=== PATIENT | female | born 1945 ===

== ENCOUNTER 2018-06-02 08:45 | Outpatient (REF) | payer MEDICARE, BC, SELFPAY ==
[2018-06-02 11:54] LABS: HCT 44.3 % (36.0-46.0); HGB 14.7 g/dL (12.0-15.5); Mean Corp. HGB Concentration 33.2 g/dL (32.0-36.0); Mean Corpuscular Hemoglobin 31.5 pg (27.0-33.0); Mean Corpuscular Volume 95.1 fL (80-95); Mean Platelet Volume 10.8 fL (8.0-11.0); Platelet Count 202 x1000/uL (130-400); RBC 4.66 m/cumm (4.00-5.20); RBC Distribution Width 13.2 % (11.7-14.6); White Blood Cell Count 4.17 k/cumm (4.4-10.8)
[2018-06-02 12:06] LABS: ALT 29 U/L (12-78); AST 24 U/L (15-37); Albumin 3.7 g/dL (3.4-5.0); Alkaline Phosphatase 70 U/L (46-116); Anion Gap 8.1 mmol/L (3-11); BUN 17 mg/dL (7-18); Bilirubin, Total 0.5 mg/dL (0.2-1.0); CO2 26.9 mmol/L (21.0-32.0); CREATININE 0.75 mg/dL (0.55-1.02); Calcium 8.8 mg/dL (8.5-10.1); Chloride 108 mmol/L (98-107); Cholesterol 246 mg/dL (50-200); Glucose 90 mg/dL (70-100); HDL Cholesterol 77 mg/dL (40-60); LDL CHOLESTEROL 141 mg/dL (<100); Potassium 4.4 mmol/L (3.5-5.1); Sodium 143 mmol/L (136-145); Total Protein 6.2 g/dL (6.4-8.2); Triglyceride 131 mg/dL (30-150)
== END 2018-06-02 08:46 ==
LOC: NCHCN 08:45
PROVIDERS: PCP Family Medicine; Visit Provider Family Medicine
DX: E78.5 Hyperlipidemia, unspecified (principal); Z79.01 Long term (current) use of anticoagulants; I48.91 Unspecified atrial fibrillation
CPT/HCPCS: 80053; 80061; 83721; 85027

== ENCOUNTER 2018-09-23 00:19 | Outpatient (CLI) | payer MEDICARE, BC, SELFPAY ==
--- NOTE | 2018-09-23 14:31 | DI.MAMMO_ITS ---
SYMPTOMS/DIAGNOSIS: SCREENING, Z12.31, [facility], Z00.00 MAMMOGRAM: Mammograms were interpreted according to the usual protocol including computer analysis with CAD system, tomosynthesis and C view imaging. The breasts are heterogeneously dense. No dominant mass or clumped microcalcification is identified in either breast. Current examination is compared with the previous examination of May 2017 and there has been no gross interval change in appearance since that time. CONCLUSION: No specific evidence of malignancy at this time. Routine screening examinations are suggested at yearly intervals due to the family history of breast carcinoma. Category 1, breast density category C. MQSA ASSESSMENT OF FINDINGS: Negative. Category 1. Patient will receive a letter notifying them of these results. Bi-RADS category C. The breasts are heterogeneously dense, which may obscure small masses.
== END 2018-09-23 00:39 ==
PROVIDERS: PCP Family Medicine; Visit Provider Nurse Practitioner
DX: Z12.31 Encounter for screening mammogram for malignant neoplasm of breast (principal); Z80.3 Family history of malignant neoplasm of breast
CPT/HCPCS: 77063; 77067

== ENCOUNTER 2019-06-07 08:35 | Outpatient (REF) | payer MEDICARE, BC, SELFPAY ==
[2019-06-07 12:46] LABS: ALT 20 U/L (12-78); AST 27 U/L (15-37); Albumin 3.7 g/dL (3.4-5.0); Alkaline Phosphatase 79 U/L (46-116); Anion Gap 9.6 mmol/L (3-11); BUN 20 mg/dL (7-18); Bilirubin, Total 0.4 mg/dL (0.2-1.0); CO2 26.4 mmol/L (21.0-32.0); CREATININE 0.63 mg/dL (0.55-1.02); Calcium 8.8 mg/dL (8.5-10.1); Calculated LDL 127 mg/dL; Chloride 107 mmol/L (98-107); Cholesterol 232 mg/dL (50-200); Glucose 86 mg/dL (70-100); HDL Cholesterol 85 mg/dL (40-60); Potassium 4.4 mmol/L (3.5-5.1); Sodium 143 mmol/L (136-145); TSH 1.42 uIU/mL (0.36-3.74); Total Protein 6.3 g/dL (6.4-8.2); Triglyceride 104 mg/dL (30-150)
[2019-06-07 12:59] LABS: C-Reactive Protein < 0.05 mg/dL (0.0-0.3)
== END 2019-06-07 08:55 ==
LOC: NCHCN 08:35
PROVIDERS: PCP Family Medicine; Visit Provider Family Medicine
DX: E78.5 Hyperlipidemia, unspecified (principal)
CPT/HCPCS: 80053; 80061; 83721; 84443; 86140

== ENCOUNTER 2019-09-25 00:53 | Outpatient (CLI) | payer MEDICARE, BC, SELFPAY ==
--- NOTE | 2019-09-25 11:34 | DI.MAMMO_ITS ---
EXAM: MG MAMMO SCREENING CLINICAL HISTORY: SCREENING, Z12.31, [facility], Z00.00 TECHNIQUE: Bilateral full field digital CC and MLO mammographic images were obtained with 3D tomosyn thesis and utilizing computer aided detection (CAD). COMPARISON: Available for comparison. FINDINGS: Masses/Architectural Distortion: None seen. Microcalcifications: No suspicious pleomorphic-type are seen. Skin Thickening/Nipple Retraction: None. IMPRESSION: 1. No significant interval change with no specific features of malignancy noted. 2. Unless there is more urgent need, screening mammography is recommended, as per [employer] guidelines. ACR BI-RAD Category- 1 Negative Breast Density - Category C - Heterogeneously dense The mammogram demonstrates the patient's breast tissue is dense. Dense breast tissue is very common a nd is not abnormal but dense breast tissue can make it harder to find cancer on a mammogram. Also, de nse breast tissue may increase their breast cancer risk. This information about the result of the [facility] mogram report was provided to the patient to raise their awareness. Use this report when you speak wi th the patient about their risks for breast cancer, which includes their family history. At that time , you may recommend for more screening tests (Ultrasound or MRI) as they might be useful based on the ir risk. A negative radiographic report should not delay biopsy if a dominant or clinically suspicious mass is present. Up to ten percent of cancers are not identified on mammography. A negative report may reinforce clinical impression. Adenosis and dense breasts may obscure an underlying neoplasm. False positive reports average 6 to 10%. Patient will receive a letter notifying them of these results.
== END 2019-09-25 01:13 ==
PROVIDERS: PCP Family Medicine; Visit Provider Family Medicine
DX: Z12.31 Encounter for screening mammogram for malignant neoplasm of breast (principal)
CPT/HCPCS: 77063; 77067

== ENCOUNTER 2019-12-13 10:57 | Outpatient (REF) | payer MEDICARE, BC, SELFPAY ==
[2019-12-13 11:26] LABS: HCT 41.3 % (36.0-46.0); HGB 13.9 g/dL (12.0-15.5); Mean Corp. HGB Concentration 33.7 g/dL (32.0-36.0); Mean Corpuscular Hemoglobin 31.9 pg (27.0-33.0); Mean Corpuscular Volume 94.7 fL (80-95); Mean Platelet Volume 10.5 fL (8.0-11.0); Platelet Count 205 x1000/uL (130-400); RBC 4.36 m/cumm (4.00-5.20); RBC Distribution Width 12.9 % (11.7-14.6); White Blood Cell Count 5.13 k/cumm (4.4-10.8)
[2019-12-13 12:21] LABS: ESR 5 mm/hr (0-30)
== END 2019-12-13 11:17 ==
LOC: NCHCN 10:57
PROVIDERS: PCP Family Medicine; Visit Provider Family Medicine
DX: R53.83 Other fatigue (principal); I48.91 Unspecified atrial fibrillation
CPT/HCPCS: 85027; 85652

== ENCOUNTER 2020-01-04 01:02 | Outpatient (CLI) | payer MEDICARE, BC, SELFPAY ==
--- NOTE | 2020-01-04 10:30 | DI.US_ITS ---
APPROVED REPORT EXAM: Comprehensive 2D, Doppler, and color-flow Echocardiogram Patient Location: Out-Patient Commercial Decorator: Domonique Simental RDCS (AE) Indications: Atrial Fibrillation Conclusion Left Ventricle : The left ventricle is normal size. Left ventricular systolic function is normal. Th ere is normal left ventricular wall thickness. There is normal LV segmental wall motion. Diastolic f unction is indeterminate. LVEF is 60-64%. Right Ventricle : The right ventricle is normal size. Atria : The left atrium size is normal. The right atrium size is normal. Aortic Valve : The aortic valve is normal in structure. Aortic valve is trileaflet. No aortic regurgi tation is present. There is no aortic valvular stenosis. Mitral Valve : There is mitral annular calcification. Mild mitral regurgitation. No evidence of jai l valve stenosis. Tricuspid Valve : The tricuspid valve is normal in structure. Mild tricuspid regurgitation. There is no tricuspid valve stenosis. Great Vessels : The aortic root is normal in size. The ascending aorta size is dilated. IVC is jakub l in size and collapses >50% with inspiration. There is no prior echocardiogram available for comparison. Wall motion Left Ventricle The left ventricle is normal size. Left ventricular systolic function is normal. There is normal left ventricular wall thickness. There is normal LV segmental wall motion. Diastolic function is indeterm inate. LVEF is 60-64%. Right Ventricle The right ventricle is normal size. The right ventricular systolic function is normal. Atria The left atrium size is normal. The right atrium size is normal. Aortic Valve The aortic valve is normal in structure. Aortic valve is trileaflet. There is no aortic valvular sten osis. No aortic regurgitation is present. Mitral Valve There is mitral annular calcification. No evidence of mitral valve stenosis. Mild mitral regurgitatio n. Tricuspid Valve The tricuspid valve is normal in structure. There is no tricuspid valve stenosis. Mild tricuspid regu rgitation. Pulmonic Valve The pulmonary valve is normal in structure. There is no pulmonic valvular stenosis. There is no pulmo hector valvular regurgitation. Great Vessels The aortic root is normal in size. The ascending aorta size is dilated. IVC is normal in size and col lapses >50% with inspiration. Pericardium There is no pericardial effusion. 2D Dimensions IVSD d PLAX 0.83 cm F: 0.6-1.0 LV Vol A2C d MOD 89.3 mL LVPW d PLAX 0.82 cm F: 0.6 - 1.0 LV Vol A4C d MOD 72.3 mL LVID d PLAX 4.34 cm F: 3.8 - 5.2 LA vol/ BSA A2C s A-L 39.8 mL/m2 LVDs 2.55 cm F: 2.2 - 3.5 LA vol/ BSA A4C s A-L 39.1 mL/m2 Ao Root d 3.14 cm F: 2.7 - 3.3 LA Vol/ BSA Biplane s A-L 39.5 mL/m2 RA Area A4C 15.50 cm2 LA Area A4C s MOD 20.14 cm2 RA Vol/ BSA A4C s A-L 26.6 mL/m2 LA Area A2C s MOD 20.27 cm2 Ao Asc Diam d 3.59 cm F: 2.3 - 3.1 LV EF A4C MOD 55.2 % LV EF Teichholz 72.3 % LV EF A2C MOD 64.6 % LVEF (Barnhart's) 60.24 % F: 54 - 74 LV EF Biplane MOD 60.2 % LV Volume 65.22 mL F: 46 - 106 LV Volume Index 40.25 mL/m2 F: 29 - 61 LV Vol Biplane MOD 80.8 mL FS 41.15 % LV Diastology MV E' medial 0.093 (>0.07 m/s) E/A Ratio 1.1 LV E/e MED 7.20 (<14) MV E Vmax 0.67 (0.4-1.3 m/s) MV E' lateral 0.093 (>0.1 m/s) MV A Vmax 0.60 (0.4-1.3 m/s) LV E/e LAT 7.20 (<14) MV E/A Ratio 1.08 MV E/E' medial 7.22 MV E/E' lateral 7.22 Aortic Valve LVOT Area 2.77 cm2 AoV Area Vmax 2.27 cm2 LVOT Vmax 0.95 m/s AoV Area/ BSA (Vmax) 1.40 cm2/m2 LVOT Mean Grady. 0.61 m/s MILAGRO Mean Grady. 2.28 cm2 LVOT Peak Grad 3.6 mmHg MILAGRO Mean Grady. Index 1.40 cm2/m2 LVOT Mean Grad 1.8 mmHg LVOT VTI 0.232 m LVOT Diam s 1.85 cm (M/F) 1.5-2.5 AoV Vmax 1.15 (0.5-1.3 m/s) Velocity Ratio 0.82 AoV Mean Grady. 0.74 m/s AoV Peak Grad 5.3 mmHg LVOT SV 64.17 mL AoV Mean Grad 2.6 (<5 mmHg) AoV VTI 0.266 (0.18-0.25 m) AoV Area VTI 2.41 (2.5-4.5 cm2) AoV Area/ BSA (VTI) 1.48 cm/m2 Mitral Valve MV DT 195 (160-240 msec) MV PHT 56 msec MV Area PHT 3.90 cm2 Pulmonary Valve PV Vmax 0.86 (0.5-1.5 m/s) RVOT Peak Gr. 2.06 mmHg PV Peak Grad 3.0 mmHg RVOT Mean Gr. 1.05 mmHg PV Mean Grad 1.7 mmHg RVOT VTI 0.195 m PV VTI 0.220 m RVOT Vmax 0.72 m/s Tricuspid Valve TR Peak Grad 20.5 mmHg TR Vmax 2.27 m/s RA Pressure 3.00 mmHg RVSP (TR) 23.6 mmHg
== END 2020-01-04 01:22 ==
PROVIDERS: PCP Family Medicine; Visit Provider Family Medicine
DX: I48.91 Unspecified atrial fibrillation (principal); I34.0 Nonrheumatic mitral (valve) insufficiency; R53.83 Other fatigue
CPT/HCPCS: 93306

== ENCOUNTER 2020-09-26 01:18 | Outpatient (CLI) | payer MEDICARE, BC, SELFPAY ==
--- NOTE | 2020-09-26 10:15 | DI.MAMMO_ITS ---
EXAM: MG MAMMO SCREENING CLINICAL HISTORY: SCREENING,Z12.31. TECHNIQUE: Bilateral full field digital CC and MLO mammographic images were obtained with 3D tomosyn thesis and utilizing computer aided detection (CAD). COMPARISON: Prior mammograms dating back to 2016, the most recent being September 2019. Significant family history. Her mother was diagnosis breast cancer. Also maternal aunt. FINDINGS: The fibroglandular tissue is dense, this decreasing the sensitivity mammogram for finding in underlyi ng lesions. There are no new dominant masses nor malignant appearing microcalcification groups. There is no new architectural distortion nor skin thickening-retraction. IMPRESSION: Dense bilateral fibroglandular tissue. No obvious radiographic evidence of malignancy nor significan t change compared to prior mammograms listed above. Given the density of this patient's fibroglandular tissue and significant family history (mother with breast cancer) I recommend screening bilateral breast ultrasound. BI-RADS Category 0 - Assessment Incomplete: Need additional imaging evaluation Breast Density - Category D - Extremely dense Breast density Category C or D implies that the patient has dense breast tissue. Dense breast tissue can make it harder to find cancer on a mammogram. Dense breast tissue is also associated with an incr eased risk of breast cancer. This information about the result of the mammogram report was provided to the patient to raise their awareness. Use this report when you speak with the patient about their risks for breast cancer, which includes their family history. At that time, you may recommend additional screening tests (Ultrasoun d or MRI) as these tests may add significant information. A negative radiographic report should not delay biopsy if a dominant or clinically suspicious mass is present. Up to ten percent of cancers are not identified on mammography. A negative report may reinforce clinical impression. Adenosis and dense breasts may obscure an underlying neoplasm. False positive reports average 6 to 10%. Patient will receive a letter notifying them of these results.
== END 2020-09-26 01:38 ==
PROVIDERS: PCP Family Medicine; Visit Provider Family Medicine
DX: Z12.31 Encounter for screening mammogram for malignant neoplasm of breast (principal); Z80.3 Family history of malignant neoplasm of breast; R92.8 Other abnormal and inconclusive findings on diagnostic imaging of breast
CPT/HCPCS: 77063; 77067

== ENCOUNTER 2020-10-07 01:11 | Outpatient (CLI) | payer MEDICARE, BC, SELFPAY ==
--- NOTE | 2020-10-07 | DI.US_ITS ---
EXAM: US BREAST RT COMPLETE CLINICAL HISTORY: F/U MAMMO, DENSE BREASTS,FAMILY H/O BREAST CA TECHNIQUE: Ultrasound right breast performed occluding all 4 quadrants as well as the retroareolar r egion and ipsilateral axilla COMPARISON: Recent mammogram 12/25/2011 was reviewed . FINDINGS: There are no solid or significant lesions seen in all 4 quadrants nor in the retroareolar region. No significant axillary adenopathy. IMPRESSION: Negative complete right breast ultrasound . No axillary adenopathy. BI-RADS Category 1 - Negative DATA REPOSITORY:
--- NOTE | 2020-10-07 | DI.US_ITS ---
EXAM: US BREAST LT COMPLETE CLINICAL HISTORY: F/U MAMMO, DENSE BREASTS, STRONG FAMILY HISTORY OF BREAST CA TECHNIQUE: Ultrasound right breast performed using standard protocol. COMPARISON: Recent mammogram 09/26/2020 FINDINGS: No evidence of solid or significant cystic lesions in all 4 quadrants nor in the retroareolar region. No significant axillary adenopathy. IMPRESSION: Negative complete left breast ultrasound BI-RADS Category 1 - Negative DATA REPOSITORY:
== END 2020-10-07 01:31 ==
PROVIDERS: PCP Family Medicine; Visit Provider Family Medicine
DX: R92.8 Other abnormal and inconclusive findings on diagnostic imaging of breast (principal); Z80.3 Family history of malignant neoplasm of breast
CPT/HCPCS: 76642

== ENCOUNTER 2022-07-09 17:34 | Outpatient (REF) | payer MEDICARE, BC, SELFPAY ==
[2022-07-09 20:23] LABS: Hemoglobin A1C 5.6 % (<5.7)
[2022-07-09 20:24] LABS: C-Reactive Protein 0.15 mg/dL (0.0-0.3); FREE T4 0.81 ng/dL (0.76-1.46); TSH 1.02 uIU/mL (0.36-3.74)
== END 2022-07-09 17:35 | disposition home or self-care (01) ==
LOC: NCHCN 17:34
PROVIDERS: PCP Family Medicine; Visit Provider Family Medicine
DX: I48.91 Unspecified atrial fibrillation (principal)
CPT/HCPCS: 83036; 84439; 84443; 86140

== ENCOUNTER 2022-08-27 01:25 | Emergency (ER) | payer MEDICARE, BC, SELFPAY ==
[2022-08-27 01:26] VITALS: BP 143/79; PULSE 62; RESP 16; O2SAT 97
--- NOTE | 2022-08-27 01:30 | DI.RAD_ITS ---
Exam(s) XR FOREARM RT XR WRIST RT COMPLETE EXAM: XR FOREARM RT CLINICAL HISTORY: fall, arm pain TECHNIQUE: COMPARISON: CR,XR XR WRIST RT COMPLETE from 08/27/2022 FINDINGS: Two views of the forearm and four views of the wrist were obtained. There is a comminuted mildly dis placed mildly impacted fracture of the distal radius, no additional fracture seen. There are degener ative changes involving the carpus predominantly at the navicular multangular and multangular metacar pal joints. IMPRESSION: RADIATION DOSE DELIVERED: Total DLP
--- NOTE | 2022-08-27 01:41 | ED.GENADUL_ITS ---
Discharge Plan Disposition Patient Disposition: HOME Condition: Stable Discharge Details Chief Complaint: Orthopedic Clinical Impression: Distal radius fracture Primary Care Provider: Flakita Robertson ED Provider: Gordon Torres Home Meds and New Rx's Prescriptions: No Action alendronate [Fosamax] 70 MG tablet 70 mg PO weekly Qty: 52 bisoprolol fumarate 5 MG tablet 0.5 tab PO DAILY First-Progesterone Vgs Supp 100 mg VG .2 X PER WEEK apixaban [Eliquis] 2.5 MG tablet 2.5 mg PO BID 30 Days 0RF Discharge Instructions Instructions: Wrist Fracture in Adults (ED) Additional Instructions: Please follow-up with orthopedic surgery within the next week; please return to the emergency department for any worsening symptoms. Medical Decision Making 76-year-old female presents after mechanical fall backwards in her room in the dark this evening, fell onto her right upper extremity, pain and deformity to wrist, dorsal angulation to right wrist, neurovascular exam of limb intact. Alert oriented no signs of cranial thoracic or abdominal trauma hemodynamically stable. Likely distal radius fracture. Will provide analgesia anti- inflammatory. X-rays, splinting and Ortho follow-up 2: 55 distal radius fracture dorsally angulated. Radial pulse intact, median radial ulnar nerve distribution sensory exam intact. Soft compartments. Mobile fingers. Placed in sugar-tong splint. Will be given close orthopedic follow- up within the next day to a week. HPI General Date/Time Provider Initiated Documentation: 08/27/22 01:40 . HPI Narrative: 76-year-old female history of A. fib on Eliquis presents after mechanical fall backwards in the dark while she was walking in her room, missed the edge of the bed fell onto her right upper extremity, pain and deformity to right wrist. No loss of conscious no head injury. Related Data Home Medications Medication Instructions Recorded Confirmed First-Progesterone Vgs Supp 100 mg VG .2 X PER WEEK 12/20/16 12/20/16 apixaban 2.5 mg tablet (Eliquis) 2.5 mg PO BID 30 days 12/20/16 alendronate 70 mg tablet (Fosamax) 70 mg PO weekly ##52 01/04/18 Previous Rx's Medication Instructions Recorded apixaban 2.5 mg tablet (Eliquis) 2.5 mg PO BID 30 days 12/20/16 Allergies Allergy/AdvReac Type Severity Reaction Status Date / Time No Known Allergies Allergy Unverified 01/04/18 11:50 General Stated Complaint: Orthopedic SANAM: 4 Review of Systems Narrative: Review of Systems Constitutional: negative Eyes: negative ENT: negative Cardiovascular: negative Respiratory: negative Gastrointestinal: negative : negative Musculoskeletal: Wrist pain, deformity Skin: negative Neurologic: negative Psych: negative PFSH All Active Problems (Updated 08/27/22 @ 02:56 by Gordon Torres MD) Distal radius fracture (Acute) Social History Smoking/Tobacco Use Status: Never Smoking risk assessment performed?: Yes Alcohol Intake: current Alcohol Intake frequency: 0-2 drinks per day Alcohol type: wine Drug use: Never Substance use type: does not use Do you feel safe in your relationship?: Yes Exam Narrative Exam Narrative: Physical Examination General: alert, awake, cooperative, resting comfortably, no acute distress HEENT: normocephalic, atraumatic; PERRL, EOM intact, conjunctiva normal; no nasal discharge; moist mucous membranes, oral and pharyngeal mucosa normal, tolerating secretions Neck: supple, trachea midline; full ROM Chest: normal to inspection Respiratory: normal respiratory effort, speaking in full sentences, clear to auscultation, no wheezing, rales or rhonchi Cardiac: regular rate, regular rhythm, S1S2 intact, no murmurs rubs or gallops GI: abdomen soft, non-tender, non-distended; no palpable mass or hepatosplenomegaly Skin: no lesions, rashes or trauma appreciated Neuro: AAOx3, normal speech, moving all extremities Extremities: Slight dorsal angulation to distal forearm, radial pulse intact, median radial ulnar nerve distribution sensory exam intact, warm well perfused extremity soft compartments. Range of motion of elbow and shoulder intact. Psych: Appropriate mood and affect Course Vital Signs Vital signs: Vital Signs Pulse 62 08/27/22 01:26 Respiratory Rate 16 08/27/22 01:26 Blood Pressure 143/79 H 08/27/22 01:26 Pulse Oximetry 97 08/27/22 01:26 Temperature Source Temporal Artery Scan 08/27/22 01:26 Pulse 62 08/27/22 01:26 Respiratory Rate 16 08/27/22 01:26 Blood Pressure 143/79 H 08/27/22 01:26 Blood Pressure Position Supine 08/27/22 01:26 Pulse Oximetry 97 08/27/22 01:26 Oxygen Delivery Method Room Air 08/27/22 01:26 Oxygen Flow Rate 0 08/27/22 01:26 Pain Level 5 08/27/22 01:26
[2022-08-27] MEDS: Ketorolac 15 MG/ML VIAL IM (01:46)
--- NOTE | 2022-08-27 02:50 | DI.VRAD_ITS ---
PROCEDURE INFORMATION: Exam: XR Right Wrist Exam date and time: 08/27/2022 2:03 AM Age: 76 years old Clinical indication: Other: Fall, distal radius deformity TECHNIQUE: Imaging protocol: Radiologic exam of the Right wrist. Views: 3 or more views. COMPARISON: No relevant prior studies available. FINDINGS: Bones/joints: Acute impacted fracture through distal radial metaphysis with dorsal angulation of the fracture fragment. Degenerative changes of the intercarpal and 1st carpometacarpal joint. Osteopenia. Soft tissues: Soft tissue swelling. IMPRESSION: Acute impacted fracture through distal radial metaphysis with dorsal angulation of the fracture fragment. Dictated and Authenticated by: Demian Roa MD. Ordering:NAE Leyva MD
--- NOTE | 2022-08-27 02:50 | DI.VRAD_ITS ---
PROCEDURE INFORMATION: Exam: XR Right Forearm Exam date and time: 08/27/2022 2:09 AM Age: 76 years old Clinical indication: Other: Fall, arm pain TECHNIQUE: Imaging protocol: Radiologic exam of the Right forearm. Views: 2 views. COMPARISON: CR XR WRIST RT COMPLETE 08/27/2022 2:03 AM FINDINGS: Bones/joints: Acute impacted fracture through distal radial metaphysis with dorsal angulation of the articular surface. Osteopenia. Soft tissues: Normal. IMPRESSION: Acute impacted fracture through distal radial metaphysis with dorsal angulation of the articular surface. Dictated and Authenticated by: Demian Roa MD. Ordering:NAE Leyva MD
--- NOTE | 2022-08-27 09:21 | NUR.NOTE ---
patient called because she was concerned about her medication list on discharge. I was able to reconcile 2 medications. Thre other medication were correct in out system.
== END 2022-08-27 06:45 | disposition home or self-care (01) ==
LOC: ER 06:52
PROVIDERS: Emergency Provider Emergency Medicine; PCP Family Medicine
DX: S52.501A Unspecified fracture of the lower end of right radius, initial encounter for closed fracture (principal); W19.XXXA Unspecified fall, initial encounter; Y93.01 Activity, walking, marching and hiking; Y92.89 Other specified places as the place of occurrence of the external cause; I48.91 Unspecified atrial fibrillation
CPT/HCPCS: 29125; 96372; 99284; 73090; 73110; J1885

== ENCOUNTER 2022-08-27 11:34 | Day surgery (SDC) | payer MEDICARE, BC, SELFPAY ==
--- NOTE | 2022-08-27 11:54 | W.ORTHOCONSU ---
Date of service: 08/27/22 Time of Service: 11:54 Assessment and Plan Assessment and plan (1) Distal radius fracture: Status: Acute Assessment and plan: 76-year-old female with displaced extra-articular Right distal radius fracture Patient describes fall in the middle of the night onto outstretched right hand with wrist pain and deformity. Splinted in the emergency department without reduction. Initial thumb pain is subsided. No significant numbness, tingling, or pain at this time. Active with her hands with writing and piano. [id number]. Medical problems include atrial fibrillation using Eliquis, which she has taken this morning. Right wrist in sugar-tong fiberglass splint. Demonstrates intact motor AIN, PIN, ulnar nerves. Sensation tact throughout light touch. No significant discomfort. No carpal tunnel symptoms. Right forearm and wrist x-rays obtained in the emergency department overnight show moderately dorsally angulated extra-articular right distal radius fracture Discussed thoroughly. Recommend single reduction attempt within 24 hours of injury prior to determining definitive management. Decision to proceed with right wrist closed reduction and splinting under regional anesthesia and/or hematoma block today The risks, benefits, and alternatives were thoroughly discussed. Patient was counseled regarding pain management, expected postoperative course, and recovery timeline. All questions were answered. Informed consent was obtained. Agree and understand treatment plan. Follow up 10-14 days after procedure. Will call if any changes or concerns. Breathing comfortably on room air. No coughs or wheezes. 2+ right radial pulse. Regular rate and irregular rhythm. PFSH All Active Problems (Updated 08/27/22 @ 11:54 by Sundar Wilkinson MD) Distal radius fracture (Acute 08/27/22) Social History Smoking/Tobacco Use Status: Never Smoking risk assessment performed?: Yes Alcohol Intake: current Alcohol Intake frequency: 0-2 drinks per day Alcohol type: wine Drug use: Never Substance use type: does not use Do you feel safe in your relationship?: Yes
[2022-08-27 12:04] VITALS: BP 140/76; PULSE 55; RESP 18; TEMP 36.5; O2SAT 98
--- NOTE | 2022-08-27 12:20 | ANES.PREOP_ITS ---
General Info Date of Service Date Performed: 08/27/22 Height: 5 ft 6 in Weight: 51.8 kg Body Mass Index (BMI): 18.4 Surgical Procedure: Operation Date: 08/27/22 13:40 Proposed Procedure Side Surgeon p Closed Reduction Wrist Right Sundar Wilkinson MD Meds Allergies and Home Medications Allergies Allergy/AdvReac Type Severity Reaction Status Date / Time Sulfa (Sulfonamide Allergy Unknown Skin Rash Verified 08/27/22 11:55 Antibiotics) Home Medication Medication Instructions Recorded Vitamin B12 1 tab PO DAILY 08/27/22 apixaban 2.5 mg tablet (Eliquis) 5 mg PO BID 08/27/22 cholecalciferol (vitamin D3) 25 25 mcg PO DAILY 08/27/22 mcg (1,000 unit) tablet (Vitamin D3) metoprolol succinate 25 mg 50 mg PO BID 08/27/22 tablet,extended release 24 hr Current Visit Medications: Current Medications Generic Name Dose Route Start Last Admin Trade Name Freq PRN Reason Stop Dose Admin Ringer's Solution 1,000 mls @ 30 mls/hr 08/27/22 11:54 IV INFUSION LEV Sodium Chloride 500 mls @ 0 mls/hr 08/27/22 11:55 Saline 500ml Bag IV PRN PRN As Directed IV Miscellaneous Supplies 1 each 08/27/22 11:55 Iv Access IV DIRECTED LEV Oxycodone HCl 0 mg 08/27/22 11:42 Oxycodone 5 Mg Tab PO Q3H PRN PRN Pain Sodium Chloride 0 ml 08/27/22 11:55 Normal Saline Flush 10 Ml Syr IVP PRN PRN PFSH Active Problems Active Problems: Problem Status Onset Code Distal radius fracture 08/27/22 S52.509A Medical History Medical History (Updated 08/27/22 @ 12:31 by Abeba Monson RN) Atrial fibrillation GERD (gastroesophageal reflux disease) Tobacco Smoking/Tobacco Use Status: Former Tobacco Use Alcohol Alcohol Intake: current Alcohol intake frequency: 3 or more drinks per day Alcohol type: wine Substance Use Substance use: Never Substance use type: does not use Vital Signs and Lab Results Vital Signs Most Recent Vital Signs in EMR: Most Recent Vital Signs Temp Pulse Resp BP Pulse Ox 36.5 C 55 L 18 140/76 98 08/27/22 12:04 08/27/22 12:04 08/27/22 12:04 08/27/22 12:04 08/27/22 12:04 Lab Results Blood Type / Crossmatch: No Data to Display Complete Blood Count: No Data to Display Complete Metabolic Panel: No Data to Display Liver Function Panel: No Data to Display Coagulation Panel: No Data to Display Cardiac Panel: No Data to Display Arterial Blood Gas: No Data to Display Venous Blood Gas: No Data to Display Pancreas Panel: No Data to Display Thyroid Panel: No Data to Display Infectious Disease: No Data to Display Blood Cultures: No Data to Display Toxicology Panel: No Data to Display Imaging and Studies Imaging and Studies Study information below may be from another EMR and interpreted by another provider. Please see original notes in EMR for more complete details. Echocardiogram Summary: Patient Name: Markus SALAZAR #: [id number]: DI Ordering Provider: Dianne Robertson #: [id number]: REG CLI Primary Care Provider: Cherie Robertson of Exam: 01/04/20ex: F Admission Date: 01/04/20 : 1945 Age: 74 Exam(s) a US:US echocardiogram APPROVED REPORT EXAM: Comprehensive 2D, Doppler, and color-flow Echocardiogram Patient Location: Out-Patient Manager Of Financial Planning: Domonique Simental RDCS (AE) Indications: Atrial Fibrillation Conclusion Left Ventricle : The left ventricle is normal size. Left ventricular systolic function is normal. There is normal left ventricular wall thickness. There is normal LV segmental wall motion. Diastolic function is indeterminate. LVEF is 60-64%. Right Ventricle : The right ventricle is normal size. Atria : The left atrium size is normal. The right atrium size is normal. Aortic Valve : The aortic valve is normal in structure. Aortic valve is trileaflet. No aortic regurgitation is present. There is no aortic valvular stenosis. Mitral Valve : There is mitral annular calcification. Mild mitral regurgitation. No evidence of mitral valve stenosis. Tricuspid Valve : The tricuspid valve is normal in structure. Mild tricuspid regurgitation. There is no tricuspid valve stenosis. Great Vessels : The aortic root is normal in size. The ascending aorta size is dilated. IVC is normal in size and collapses >50% with inspiration. There is no prior echocardiogram available for comparison. Anesthesia Assessment and Plan Anesthesia History Personal History: No History of Anesthesia Complications Family History: No Family History of Anesthesia Complications Exercise Tolerance Exercise Tolerance: Metabolic Equivalents>4 Pertinent Negatives Pertinent Negatives: No Symptoms of GERD, No Major Cardiovascular Symptoms or Complaints, No Major Pulmonary Symptoms or Complaints and No History of CVA/TIA Cardiac & Pulmonary Exam Cardiac Exam: Normal S1/S2 Heart Sounds Pulmonary Exam: Clear Bilateral Breath Sounds Implantable Cardiac Device Does patient have a Pacemaker or an ICD?: No Airway Exam Known Difficult Airway: No Mallampati Class: 2 Mouth Opening: Normal (> 3cm) Thyromental Distance: Greater than 3 cm Neck Range of Motion: Full ROM Neck Circumference: Normal Teeth Condition: Normal Dentition ASA Classification ASA Score: ASA 2 Emergency Case?: No NPO Status NPO Status: Full Stomach Anesthesia Plan Resuscitation Status: Full Code Anesthesia Technique: Primary Nerve Block Airway Planned: Natural Airway Pain Management: Surgeon and patient request nerve block Monitors Used: Standard Monitors
[2022-08-27] MEDS: Lactated Ringers 1,000 ML 30 ML IV (12:29)
--- NOTE | 2022-08-27 12:30 | DI.RAD_ITS ---
Exam(s) XR WRIST RT LIMITED EXAM: XR WRIST RT LIMITED CLINICAL HISTORY: RIGHT DISTAL RADIUS FRACTURE TECHNIQUE: 2D and realtime digital imaging was performed. COMPARISON: CR,XR XR FOREARM RT from 08/27/2022 FINDINGS: C-arm fluoroscopy was utilized by Dr. Wilkinson during apparent closed reduction of fracture of the dista l radius. Hard copy shows improved alignment of the fracture fragments. IMPRESSION: RADIATION DOSE DELIVERED: pily Walsh=0.07 mGy
[2022-08-27 12:45] VITALS: BP 161/84; PULSE 52; RESP 16; TEMP 36.5; O2SAT 97
[2022-08-27 13:15] VITALS: BMI 18.4
--- NOTE | 2022-08-27 13:15 | W.ANESNERVE ---
Nerve Block Single Injection Procedure Date and Time Date Performed: 08/27/22 Procedure Start: 12:55 Location Where Procedure Performed Procedure Location: Day Surgery Unit Reason Performed: Other (Primary block) Requesting Provider: Sundar Wilkinson Timeout Performed Timeout Performed: Yes Monitoring Used ECG, Blood Pressure, SpO2 and See EMR for corresponding vital signs Sterility Sterility: Hand Hygiene, Surgical Cap, Surgical Mask, Sterile Gloves and Chlorhexidine Sedation Given During Procedure Sedation Given (Indicate Dose Given): No Sedation given Patient Mental Status Patient Mental Status: Awake Nerve Block 1st Nerve Block: Laterality: Right Block Type: Supraclavicular Needle / Catheter Used: 100mm SonoPlex II Local Anesthetic Bolus (Indicate Dose Given): Lidocaine used for local infiltration of skin, Injected in 3-5ml increments after negative blood aspiration and Bupivacaine 0.5% Dose:: 20 Additives (Indicate Dose Given): None Ultrasound: Sterile probe cover and gel used Ultrasound Image Saved?: Yes Nerve Stimulator: Supplement to Ultrasound use, Expected parasthesia or motor response elicited and No twitch or parasthesia noted < 0.5 mA Paresthesia: None Procedure Tolerated: No Complications and Patient tolerated well Procedure Outcome: Successful Performed By: Nikhil Mckeon
--- NOTE | 2022-08-27 14:00 | W.PM.OP ---
Date of service: 08/27/22 Time of Service: 14:31 Operative Note Operative Note DATE OF PROCEDURE: 08/27/22 PRE-OP DIAGNOSIS: Displaced right distal radius fracture POST-OP DIAGNOSIS: same PROCEDURE: Closed treatment right distal radius fracture with manipulation under anesthesia, CPT #36408 SURGEON: Sundar Wilkinson ANESTHESIA TYPE: Local By Surgeon and Primary Nerve Block Refer to Anesthesia Record COMPLICATIONS: None Patient was transported to: PACU Patient's condition: stable Indications: Please see complete medical record for details. Procedure Description: In the operating room, appropriate regional anesthesia was confirmed. The patient was positioned supine on the stretcher. Preoperative antibiotics were omitted. The correct patient, procedure, and side of the procedure were all verified prior to beginning. There was obvious dorsal distal radius deformity. The single knife machine operator reduction maneuver was done involving axial traction, slight exaggeration of the deformity, followed by corrective volar directed force. Grossly the reduction was appropriate. AP and lateral fluoroscopy showed excellent reduction. An appropriately padded plaster sugar-tong splint was then applied to the extremity taking care to ensure three-point mold maintaining reduction. Final AP and lateral fluoroscopy confirmed excellent maintained reduction. The patient awoke from anesthesia without complication and was transferred to the recovery room in a stable condition.
[2022-08-27 14:19] VITALS: BP 149/83; PULSE 63; RESP 18; TEMP 36.5; O2SAT 96
--- NOTE | 2022-08-27 14:23 | W.PM.DSUDISC ---
Date of service: 08/27/22 Time of Service: 14:27 Discharge Plan Disposition Patient Disposition: HOME Condition: Stable Discharge Details Reason For Visit: Right wrist fracture Attending Provider: Sundar Wilkinson Primary Care Provider: Flakita Robertson Home Meds and New Rx's Prescriptions: Continued metoprolol succinate 25 mg tablet extended release 24 hr 50 mg PO BID Eliquis 2.5 MG tablet 5 mg PO BID cholecalciferol (vitamin D3) [Vitamin D3] 25 mcg (1,000 unit) Tablet 25 mcg PO DAILY Vitamin B12 1 tab PO DAILY Discharge Instructions Additional Instructions: Surgery: Right distal radius closed reduction with manipulation under anesthesia Activity: Non-weightbearing right wrist. Recommend elevation to minimize swelling and discomfort. Wiggle fingers and thumb to prevent stiffness. May use hand lightly for activities of daily living. You only need to use the sling to support the splint while the shoulder muscles are weak from the nerve block. Prescriptions: No new, resume home medications. The nerve block should provide pain relief for 1-2 days. Recommend over-thecounter Tylenol/acetaminophen for pain. Dressings: Leave splint and dressing in place until follow-up. Keep clean and dry at all times. You may loosen/adjust Live bandage to accommodate swelling and comfort. Follow-up: 10-[address] Wilkinson Do not drink alcohol or drive for at least 24 hours after anesthesia. Please call the office during business hours with any questions or concerns. Discharge Orders Discharge Orders: Discharge Order (Routine); Ordered 08/27/22 Ordered By: Sundar Wilkinson DS: Diagnosis Discharge Diagnosis (1) Distal radius fracture: Status: Acute
== END 2022-08-27 15:25 | disposition home or self-care (01) ==
PROVIDERS: PCP Family Medicine; Visit Provider Student in an Organized Health Care Education/Training Program
PROC: (CPT 25605; principal; 2022-08-27 13:30)
DX: S52.551A Other extraarticular fracture of lower end of right radius, initial encounter for closed fracture (principal); W19.XXXA Unspecified fall, initial encounter; I48.91 Unspecified atrial fibrillation; K21.9 Gastro-esophageal reflux disease without esophagitis
CPT/HCPCS: 25605; 29125; 76942; 96372; 99284; 73090; 73100; 73110; J1885

== ENCOUNTER 2022-09-09 15:25 | Outpatient (CLI) | payer MEDICARE, BC, SELFPAY ==
--- NOTE | 2022-09-09 13:30 | DI.RAD_ITS ---
Exam(s) XR WRIST RT LIMITED EXAM: XR WRIST RT LIMITED INDICATION: radius fracture f/u. COMPARISON: CR,XR XR WRIST RT COMPLETE from 08/27/2022 XA XR WRIST RT LIMITED from 08/27/2022 CR,XR XR FOREARM RT from 08/27/2022 TECHNIQUE: 2D digital imaging was performed. Two views. FINDINGS: A splint is in place which somewhat obscures the bony detail. There has been no significant change i n the alignment of the distal radial fracture. DATA REPOSITORY: RADIATION DOSE DELIVERED:
== END 2022-09-09 15:26 | disposition home or self-care (01) ==
LOC: DIORS 15:25
PROVIDERS: PCP Family Medicine; Referring Provider Family Medicine; Visit Provider Student in an Organized Health Care Education/Training Program
DX: S52.509D Unspecified fracture of the lower end of unspecified radius, subsequent encounter for closed fracture with routine healing (principal); X58.XXXD Exposure to other specified factors, subsequent encounter
CPT/HCPCS: 73100

== ENCOUNTER 2022-10-07 10:46 | Outpatient (CLI) | payer MEDICARE, BC, SELFPAY ==
--- NOTE | 2022-10-07 11:33 | DI.RAD_ITS ---
Exam(s) XR HAND RT COMPLETE EXAM: XR HAND RT COMPLETE CLINICAL HISTORY: right hand pain. TECHNIQUE: 2D digital imaging was performed of the right hand. Three images were obtained. AP, late ral and oblique views were obtained. COMPARISON: CR XR WRIST RT LIMITED from 09/09/2022 FINDINGS: BONES: There has been no change in alignment of the distal radial fracture. The fracture line is sti ll visualized. No new fractures identified. No bony destructive lesion is seen. JOINTS: No dislocation present. Moderately severe degenerative changes are seen in the wrist particul rachel at the 1st CMC joint, interphalangeal joint of the thumb and the articulation of the scaphoid wi th the quadrangular bones. SOFT TISSUE: Soft tissue swelling of the wrist. IMPRESSION: 1. Stable distal radial fracture. 2. Degenerative changes of the wrist and hand. DATA REPOSITORY: RADIATION DOSE DELIVERED:
--- NOTE | 2022-10-07 11:33 | DI.RAD_ITS ---
Exam(s) XR WRIST RT LIMITED EXAM: XR WRIST RT LIMITED CLINICAL HISTORY: distal radius fracture. TECHNIQUE: 2D digital imaging was performed of the right wrist. Two views were obtained. PA and la teral views were obtained. COMPARISON: CR XR WRIST RT LIMITED from 09/09/2022 FINDINGS: BONES: There has been no change in alignment of the distal radial fracture. No new fracture is seen. No bony destructive lesion is seen. JOINTS: The carpal bones are normally aligned. Degenerative changes are seen in the wrist. SOFT TISSUE: Normal. IMPRESSION: Stable distal radial fracture. DATA REPOSITORY: RADIATION DOSE DELIVERED:
== END 2022-10-07 10:47 | disposition home or self-care (01) ==
PROVIDERS: PCP Family Medicine; Referring Provider Family Medicine; Visit Provider Physician Assistant
DX: S52.501D Unspecified fracture of the lower end of right radius, subsequent encounter for closed fracture with routine healing (principal); X58.XXXD Exposure to other specified factors, subsequent encounter
CPT/HCPCS: 73100; 73130

== ENCOUNTER 2022-11-18 11:03 | Outpatient (CLI) | payer MEDICARE, BC, SELFPAY ==
--- NOTE | 2022-11-18 10:30 | DI.RAD_ITS ---
Exam(s) XR WRIST RT LIMITED EXAM: XR WRIST RT LIMITED INDICATION: RADIUS FX F/U. COMPARISON: CR XR WRIST RT LIMITED from 10/07/2022 TECHNIQUE: 2D digital imaging was performed. Two views. FINDINGS: There has been continued healing at the distal radial fracture site which shows increased healing com pared the previous exam. Degenerative changes are again noted greatest at the 1st carpal metacarpal joint. DATA REPOSITORY: RADIATION DOSE DELIVERED:
== END 2022-11-18 11:04 | disposition home or self-care (01) ==
LOC: DIORS 11:04
PROVIDERS: PCP Family Medicine; Referring Provider Family Medicine; Visit Provider Student in an Organized Health Care Education/Training Program
DX: S52.501D Unspecified fracture of the lower end of right radius, subsequent encounter for closed fracture with routine healing; X58.XXXD Exposure to other specified factors, subsequent encounter
CPT/HCPCS: 73100

== ENCOUNTER 2023-05-05 13:35 | Outpatient (REF) | payer MEDICARE, BC, SELFPAY ==
[2023-05-05 15:34] LABS: ALT 27 U/L (14-59); AST 30 U/L (15-37); Albumin 3.9 g/dL (3.4-5.0); Alkaline Phosphatase 91 U/L (46-116); Anion Gap 6.5 mmol/L (3-11); BUN 19 mg/dL (7-18); Bilirubin, Total 0.5 mg/dL (0.2-1.0); CO2 30.5 mmol/L (21.0-32.0); CREATININE 0.9 mg/dL (0.55-1.02); Calcium 9.2 mg/dL (8.5-10.1); Calculated LDL 169 mg/dL (<100); Chloride 107 mmol/L (98-107); Cholesterol 269 mg/dL (<200); Estimated GFR 66.26 (mL/min/1.73m2); Glucose 81 mg/dL (74-106); HDL Cholesterol 83 mg/dL (40-60); Potassium 5.8 mmol/L (3.5-5.1); Sodium 144 mmol/L (136-145); Total Protein 6.5 g/dL (6.4-8.2); Triglyceride 88 mg/dL (<150)
== END 2023-05-05 13:36 | disposition home or self-care (01) ==
LOC: NCHCN 13:35
PROVIDERS: PCP Family Medicine; Visit Provider Family Medicine
DX: E78.5 Hyperlipidemia, unspecified (principal); Z00.00 Encounter for general adult medical examination without abnormal findings; R53.83 Other fatigue
CPT/HCPCS: 80053; 80061

== ENCOUNTER 2023-05-18 18:44 | Outpatient (REF) | payer MEDICARE, BC, SELFPAY ==
[2023-05-18 14:20] LABS: Potassium 4.5 mmol/L (3.5-5.1)
== END 2023-05-18 18:45 | disposition home or self-care (01) ==
LOC: NCHCN 18:44
PROVIDERS: PCP Family Medicine; Visit Provider Family Medicine
DX: E87.5 Hyperkalemia (principal)
CPT/HCPCS: 84132

== ENCOUNTER 2023-11-26 12:08 | Emergency (ER) | payer MEDICARE, BC, SELFPAY ==
[2023-11-26] VITALS (50 sets, daily range): BP systolic 113–213; BP diastolic 62–106; PULSE 48–90; RESP 6–31; TEMP 36.3; O2SAT 96–100
--- NOTE | 2023-11-26 12:00 | RT.EKG_ITS ---
APPROVED REPORT Exam: Resting ECG Reason for Exam: weakness Patient Location: E HR:49 bpm ECG Measurements Heart Rate 49 AXIS OR 157 P 47 QRSd 101 QRS 53 QT 445 T 42 QTc 404 Conclusion Sinus bradycardia...rate< 60 Probable anteroseptal infarct, recent...Q, ST>0.15mV, T neg, V1-V2 sinus bradycardia, normal axis, normal intervals, no hypertrophy, non ischemic
--- NOTE | 2023-11-26 12:15 | DI.CT_ITS ---
Exam(s) CT BRAIN NECK CTA EXAM: CT BRAIN NECK CTA CLINICAL HISTORY: dysarthria, L facial, left upper ext weak, on AC. TECHNIQUE: Imaging Protocol: Axial CT angiography was performed with multi-slice acquisition and mu lti-planar and/or 3D reconstructions. CONTRAST MATERIAL: Intravenous: Omnipaque 350 contrast volume:85 mL COMPARISON: CT HEAD WITHOUT STROKE PROTOCOL from 12/20/2016 FINDINGS: CT Head W/O and W: Ventricles and Extra axial spaces: Normal in size and morphology for the patient's age. Hemorrhage: None. Cerebral parenchyma: Normal. Midline shift: None. Brainstem/Cerebellum: Normal. Calvarium: Normal. Visualized Paranasal sinuses/Mastoids: Clear. Soft Tissues: Unremarkable. Enhancement: Unremarkable. CTA Neck W: Common Carotid: Right: No dissection, occlusion or significant stenosis. Left: No dissection, occlusion or significant stenosis. External Carotid: Right: No occlusion or significant stenosis. Left: No occlusion or significant stenosis. Internal Carotid: Right: No dissection, occlusion or significant stenosis. Left: No dissection, occlusion or significant stenosis. Vertebral Artery: Right: No dissection, occlusion or significant stenosis. Left: No dissection, occlusion or significant stenosis. Lung Apices: Normal. Bones: Within normal limits for the patient's age. Soft Tissues: Normal. Thyroid gland: Unremarkable. CTA Brain W: Internal Carotid Arteries: There is atherosclerosis of the internal carotid arteries but no significa nt stenosis. No aneurysm or occlusion is seen. Anterior Cerebral Arteries: Right: No aneurysm, occlusion or significant stenosis. Left: No aneurysm, occlusion or significant stenosis. Middle Cerebral Arteries: Right: No aneurysm, occlusion or significant stenosis. Left: No aneurysm, occlusion or significant stenosis. Posterior Cerebral Arteries: The posterior cerebral arteries arise from the posterior communicating a rteries bilaterally which is a normal variant. Right: No aneurysm, occlusion or significant stenosis. Left: No aneurysm, occlusion or significant stenosis. Vertebral Arteries: Right: No aneurysm, occlusion or significant stenosis. Left: No aneurysm, occlusion or significant stenosis. Basilar Artery: No aneurysm, occlusion or significant stenosis. IMPRESSION: 1. No large vessel occlusion or significant stenosis on the CT angiography of the head. 2. No acute intracranial process. 3. No occlusion or significant stenosis on the CT angiography of the neck. 4. Findings were discussed with the emergency department at 01:54 p.m. on 11/26/2023. RADIATION DOSE DELIVERED: 1,891.89mGy.cm Total DLP DATA REPOSITORY: All CT scans at this facility are submitted to the National Radiology Data Registry (NRDR) Dose Index Registry (DIR) with the [employer] (ACR). RADIATION OPTIMIZATION: All CT scans at this facility use at least one of these dose optimization te chniques: automated exposure control; mA and/or kV adjustment per patient size (includes targeted exa ms where dose is matched to clinical indication); or iterative reconstruction.
[2023-11-26 12:36] LABS: Abs Immature Grans 0.02 10^3/uL (0.0-0.06); Absolute Basophil Count 0.06 10^3/uL (0.0-0.2); Absolute Eosinophil Count 0.12 10^3/uL (0.0-0.7); Absolute Monocyte Count 0.33 10^3/uL (0.1-0.8); Absolute Neutrophil Count 3.19 10^3/uL (1.2-6.7); Basophils % 1.2; Eosinophils % 2.3; HCT 41.5 % (36.0-46.0); HGB 13.8 g/dL (11.2-15.7); Immature Grans % 0.4; Lymphocytes % 27.3; MCH 31.4 pg (27.0-33.0); MCHC 33.3 % (32.0-36.0); MCV 94 fL (80-95); MPV 10.2 fL (8.0-11.0); Monocytes % 6.4; Neutrophils % 62.4; Platelet Count 180 10^3/uL (130-400); RDW 12.9 % (11.7-14.6); RDW-SD 44.9 fL; WBC 5.12 10^3/uL (4.4-10.8)
--- NOTE | 2023-11-26 12:41 | W.ED.GENAD ---
HPI General Date/Time Provider Initiated Documentation: 11/26/23 12:09. HPI Narrative: 78-year-old female history of A-fib on Eliquis presents with acute onset left-sided weakness and speech changes that began around 11 AM this morning while patient was seated in her car initially describes sensation that she could not move her hand and felt that her left side of her face was heavy. Denies headache chest pain shortness of breath nausea vomiting or other systemic signs of illness. Related Data Home Medications Medication Instructions Recorded Confirmed Vitamin B12 1 tab PO DAILY 08/27/22 11/26/23 apixaban 2.5 mg tablet (Eliquis) 5 mg PO BID 08/27/22 11/26/23 cholecalciferol (vitamin D3) 25 25 mcg PO DAILY 08/27/22 11/26/23 mcg (1,000 unit) tablet (Vitamin D3) metoprolol succinate 25 mg 50 mg PO BID 08/27/22 11/26/23 tablet,extended release 24 hr Allergies Allergy/AdvReac Type Severity Reaction Status Date / Time Sulfa (Sulfonamide Allergy Unknown Skin Rash Verified 11/26/23 12:14 Antibiotics) General Stated Complaint: CVA/TIA SANAM: 2 Review of Systems Narrative: Review of Systems Constitutional: negative Eyes: negative ENT: negative Cardiovascular: negative Respiratory: negative Gastrointestinal: negative : negative Musculoskeletal: negative Skin: negative Neurologic: Weakness, speech change Psych: negative Exam Narrative Exam Narrative: Physical Examination General: alert, awake, cooperative, resting comfortably, no acute distress HEENT: normocephalic, atraumatic; PERRL, EOM intact, conjunctiva normal; no nasal discharge; moist mucous membranes, oral and pharyngeal mucosa normal, tolerating secretions Neck: supple, trachea midline; full ROM Chest: normal to inspection Respiratory: normal respiratory effort, speaking in full sentences, clear to auscultation, no wheezing, rales or rhonchi Cardiac: regular rate, regular rhythm, S1S2 intact, no murmurs rubs or gallops GI: abdomen soft, non-tender, non-distended; no palpable mass or hepatosplenomegaly Skin: no lesions, rashes or trauma appreciated Neuro: AAOx3, slight dysarthria and mild expressive aphasia, mild flattening of left nasolabial fold, 4+ out of 5 strength left upper extremity, 5 out of 5 strength in remaining 3 extremities, minimal limb ataxia left upper extremity [id number], minimal left drift upper extremity Psych: Appropriate mood and affect Course Vital Signs Vital signs: Vital Signs Temperature 36.3 C L 11/26/23 12:08 Pulse 54 L 11/26/23 12:08 Respiratory Rate 18 11/26/23 12:08 Blood Pressure 213/84 H 11/26/23 12:08 Pulse Oximetry 96 11/26/23 12:08 Temperature 36.3 C L 11/26/23 12:08 Temperature Source Oral 11/26/23 12:08 Pulse 54 L 11/26/23 12:08 Respiratory Rate 18 11/26/23 12:12 Respiratory Effort Normal, Non-Labored 11/26/23 12:12 Respiratory Depth Normal 11/26/23 12:12 Respiratory Pattern Normal 11/26/23 12:12 Blood Pressure 213/84 H 11/26/23 12:08 Blood Pressure Position Sitting 11/26/23 12:08 Pulse Oximetry 96 11/26/23 12:08 Oxygen Delivery Method Room Air 11/26/23 12:08 Oxygen Flow Rate 0 11/26/23 12:08 Pain Level 0 11/26/23 12:08 Lab/Test Results Lab/Test Results: Laboratory Tests Range/Units 11/26/23 12:18 WBC (4.4-10.8) 10^3/uL 5.12 RBC (3.93-5.22) 10^6/uL 4.40 Hgb (11.2-15.7) g/dL 13.8 Hct (36.0-46.0) % 41.5 MCV (80-95) fL 94 MCH (27.0-33.0) pg 31.4 MCHC (32.0-36.0) % 33.3 RDW (11.7-14.6) % 12.9 Plt Count (130-400) 10^3/uL 180 MPV (8.0-11.0) fL 10.2 Immature Gran % 0.4 Neutrophils % 62.4 Lymphocytes % 27.3 Monocytes % 6.4 Eosinophils % 2.3 Basophils % 1.2 Nucleated RBC % (0.0-0.3) % 0.0 Absolute Neutrophils (1.2-6.7) 10^3/uL 3.19 Absolute Lymphocytes (1.2-3.4) 10^3/uL 1.40 Absolute Monocytes (0.1-0.8) 10^3/uL 0.33 Absolute Eosinophils (0.0-0.7) 10^3/uL 0.12 Absolute Basophils (0.0-0.2) 10^3/uL 0.06 Medical Decision Making 78-year-old female history of A-fib on Eliquis presents with acute onset left upper extremity weakness, speech change that began around 11 AM while sitting in her car, noted to be severely hypertensive to 200s/100s with evidence of intermittent bradycardia, sinus rhythm on EKG and monitor, mild expressive aphasia as well as dysarthria, mild left nasolabial fold flattening as well as 4+ out of 5 strength left upper extremity with mild left upper extremity drift and limb ataxia, concern for CVA versus intracerebral hemorrhage versus hypertensive emergency lower suspicion for encephalitis meningitis ACS aortic pathology traumatic injury or infectious process given history and physical. Patient taken for stat CT CTA head neck to assess for large vessel occlusion, patient is not a tPA candidate given Eliquis use. Will control blood pressure with nicardipine initial goal to reduce below 180 systolic and 110 diastolic, will contact [facility] neurology team to discuss any further intervention pending imaging results and reassessment of patient. 15: 17 improving blood pressure down to the 140s on nicardipine, dysarthria/aphasia is improving, less drift of left upper extremity, strength 5 out of 5 upper and lower extremities bilaterally, improving NIH score from initial 5 now 2-3. Negative CT CTA head neck for occlusive process dissection or edema. Will obtain stat MRI to assess for any signs of acute stroke. Consider more likely at this point hypertensive emergency improving on antihypertensive 15: 57 patient has been weaned off of nicardipine. Blood pressure 117/84, normal sinus rhythm, patient is returned to complete baseline no dysarthria no aphasia no weakness no drift, patient is amatory without assistance. MRI brain negative for acute ischemic process. Consider hypertensive emergency versus TIA now resolved. Patient feels comfortable and would like to go home. Will arrange close follow-up with neurology. Home care instructions and return precautions given. Patient will continue with Eliquis and metoprolol. Quality:SDOH Health Related Social Needs: No Data to Display PFSH All Active Problems (Updated 11/26/23 @ 16:01 by Gordon Torres MD) Hypertensive emergency (Acute) Fracture of right distal radius (Acute 08/27/22) Medical History (Updated 11/26/23 @ 16:01 by Gordon Torres MD) GERD (gastroesophageal reflux disease) Atrial fibrillation Social History Smoking/Tobacco Use Status: Former Tobacco Use Quit Date: 08/25/06 Smoking risk assessment performed?: Yes Alcohol Intake: current Alcohol Intake frequency: 3 or more drinks per day Alcohol type: wine Drug use: Never Substance use type: does not use Current gender identity: female Do you feel safe at home: Yes Do you feel safe in your relationship?: Yes Discharge Plan Disposition Patient Disposition: Home Condition: Improving Discharge Details Chief Complaint: CVA/TIA Clinical Impression: Hypertensive emergency Primary Care Provider: Flakita Robertson ED Provider: Gordon Torres Home Meds and New Rx's Prescriptions: No Action metoprolol succinate 25 mg tablet extended release 24 hr 50 mg PO BID Eliquis 2.5 MG tablet 5 mg PO BID cholecalciferol (vitamin D3) [Vitamin D3] 25 mcg (1,000 unit) Tablet 25 mcg PO DAILY Vitamin B12 1 tab PO DAILY Discharge Instructions Instructions: Transient Ischemic Attack (ED), Hypertension (ED) Additional Instructions: Please follow-up with neurology referral early next week, please follow-up with your primary hospice chaplain and primary care physician. Return to the emergency department for any worsening symptoms. Continue to take your medications as prescribed
[2023-11-26 12:51] LABS: INR 1.2 (0.9-1.1); Prothrombin Time 11.5 sec (9.1-11.1)
[2023-11-26 13:02] LABS: ALT 23 U/L (14-59); AST 28 U/L (15-37); Albumin 3.5 g/dL (3.4-5.0); Alkaline Phosphatase 78 U/L (46-116); Anion Gap 5.3 mmol/L (3-11); BUN 16 mg/dL (7-18); Bilirubin, Total 0.3 mg/dL (0.2-1.0); CO2 29.7 mmol/L (21.0-32.0); CREATININE 0.6 mg/dL (0.55-1.02); Calcium 8.6 mg/dL (8.5-10.1); Chloride 104 mmol/L (98-107); Estimated GFR 92.39 (mL/min/1.73m2); Glucose 120 mg/dL (74-106); Magnesium 2.2 mg/dL (1.8-2.4); Potassium 3.8 mmol/L (3.5-5.1); Sodium 139 mmol/L (136-145); TSH (W/Ref FT4) 1.82 uIU/mL (0.36-3.74); Total Protein 6.5 g/dL (6.4-8.2); Troponin I < 50 ng/L (< or =60)
[2023-11-26] MEDS: Omnipaque 350 MG/ML 100 ML BTL IJ (13:02)
[2023-11-26] MEDS: niCARdipine 25 MG in Normal Saline 240 ML 50 MG IV (13:07)
--- NOTE | 2023-11-26 13:20 | NUR.NOTE ---
Nicardipine started with great effect. BP brought down to he 150's/s (157/64) Consulted with Physician who gave verbal order to decrease Nicardipine gtt to 2.5 mg/hr. Nursing Note:
[2023-11-26 13:48] LABS: Bilirubin Negative (Negative); Blood Negative (Negative); Clarity Clear (Clear); Glucose Negative (Negative); Ketones Negative (Negative); Leukocyte Esterase Negative (Negative); Nitrite Negative (Negative); Specific Gravity 1.015 (1.005-1.025); Urobilinogen 0.2 mg/dL (Up to 0.2); pH 7.5 (5-8)
--- NOTE | 2023-11-26 13:55 | NUR.NOTE ---
BP continued to increase on 2.5 mg/hr nicardipine dose. Titrated back up to 5mg/hr. Nursing Note:
--- NOTE | 2023-11-26 14:15 | DI.MRI_ITS ---
Exam(s) MR BRAIN WO EXAM: MR BRAIN WO CLINICAL HISTORY: aphasia, dysarthria, left upper ext weakn, HTN TECHNIQUE: Multiplanar multisequence MRI of the brain was performed. COMPARISON: CT CT BRAIN NECK CTA from 11/26/2023 FINDINGS: VENTRICLES AND EXTRA AXIAL SPACES: Normal in size and morphology for the patient's age. MIDLINE SHIFT: None. CEREBRAL PARENCHYMA: No focus of restricted diffusion to suggest acute infarct. No space-occupying le jesus identified. There are few small foci of hyperintense signal seen in the white matter most consis tent with chronic microvascular ischemic disease. HEMORRHAGE: None. BRAINSTEM/CEREBELLUM: Normal. CALVARIUM: Normal. VISUALIZED PARANASAL SINUSES/MASTOIDS:Clear. INUPIAT OF [place]ERSON: Normal flow void. PITUITARY GLAND: Unremarkable. OTHER FINDINGS: None. IMPRESSION: 1. No evidence of an acute infarct. 2. Age-appropriate cerebral atrophy and mild chronic microvascular ischemic disease. 3. Findings were discussed with the emergency department at 3:40 p.m. on 11/26/2023. DATA REPOSITORY:
[2023-11-26 16:09] LABS: Troponin I < 50 ng/L (< or =60)
--- NOTE | 2023-11-26 16:20 | NUR.NOTE ---
Nursing Note: PT needs follow up with [facility] for hypertensive crisis. Marleni, ED
== END 2023-11-26 16:12 | disposition home or self-care (01) ==
LOC: ER 16:21
PROVIDERS: Emergency Provider Emergency Medicine; PCP Family Medicine
DX: G45.9 Transient cerebral ischemic attack, unspecified (principal); I48.91 Unspecified atrial fibrillation; I10 Essential (primary) hypertension; Z79.01 Long term (current) use of anticoagulants; Z87.891 Personal history of nicotine dependence
CPT/HCPCS: 70496; 70498; 80053; 93005; 96374; 99285; 70551; 81003; 83735; 84443; 84484; 85025; 85610; 85730; 93010; 99284; J2404; J3490

== ENCOUNTER → 2023-12-02 13:42 | Outpatient (BNVA) | payer MEDICARE, BC, SELFPAY | PROVIDERS: PCP Family Medicine; Referring Provider Emergency Medicine; Visit Provider Psychiatry & Neurology Neurology | DX: I16.1 Hypertensive emergency (principal); R29.2 Abnormal reflex; R26.89 Other abnormalities of gait and mobility; M26.12 Other jaw asymmetry; R25.2 Cramp and spasm | CPT/HCPCS: 99215 ==

== ENCOUNTER → 2023-12-14 04:11 | Outpatient (CLI) | payer MEDICARE, BC, SELFPAY ==
--- NOTE | 2023-12-14 07:30 | DI.MRI_ITS ---
Exam(s) MR CERVICAL SPINE WO EXAM: MR CERVICAL SPINE WO CLINICAL HISTORY: L Babinski and L leg weakness with normal brain MR,BABINSKI REFLEX,R29.2 TECHNIQUE: Multiplanar multisequence MRI of the cervical spine was performed without intravenous con trast. COMPARISON: No exams were available for comparison FINDINGS: CERVICOMEDULLARY JUNCTION: Intact with no evidence of cerebellar tonsillar ectopia. No obvious abnor mality of the odontoid process. No evidence of Chiari 1 malformation. CERVICAL SPINAL CORD: There is no abnormal signal in the cervical spinal cord and no evidence of foca l cord atrophy nor focal cord swelling. OSSEOUS:There are no cervical fractures evident. No significant osseous lesions in the cervical vert ebrae. Incidentally noted on the lower field of view sagittal images is a 70 percent wedge compressi on fracture of T4 vertebral body, nonacute. This results in an element of kyphosis at this level. There are no acute fractures in the field of view of this study. INDIVIDUAL LEVELS: C2-3: Preserved disc height with no evidence of disc herniation nor central canal stenosis. There is significant degenerative change in both facet joints. There is, however, no significant foraminal s tenosis on either side at this level. C3-4: This level exhibits moderate disc space narrowing, more so on the left than the right. There i s mild symmetrical annular bulging without a dominant disc herniation. Central canal dimensions are lower normal at this level.There is facet arthropathy bilaterally at this level.. There is mild left -sided foraminal stenosis. There is moderate right-sided foraminal stenosis at this level . C4-5: This level exhibits chronic advanced disc space narrowing. There is annular bulging, slightly more so left than right and posterior bony ridging. This effaces the anterior thecal sac and contact s the cervical spinal cord at this level. There is no abnormal signal in the cord at this level. AP measurement of the canal at this level is 8-9 mm. There is an element of bilateral facet arthropath y.Moderate right-sided foraminal stenosis. Moderate-advanced left-sided foraminal stenosis. C5-6: This level exhibits chronic disc space narrowing. There is moderate central spinal canal steno sis at this level due to posterior bony ridging and mild annular bulging. There is no distinct focal disc herniation at this level. There is some degenerative change in the left facet joint; less so o n the right side.. Moderate foraminal stenosis on the left side. Moderate foraminal stenosis on the right side. C6-7: This level also exhibits chronic disc space narrowing without a dominant disc herniation. Cent ral canal dimensions are lower normal. There is mild bilateral facet arthropathy. There is mild asia ateral foraminal stenosis. C7-T1: No disc herniation nor central canal stenosis. There is moderate facet arthropathy at this lev el, more so on the right than the left side. There is no disc herniation or central canal stenosis a t this level. No significant foraminal stenosis. IMPRESSION: 1. Multilevel chronic degenerative disc disease, as described per individual level above. 2. No dominant disc herniation. Most significant central spinal canal stenosis is at C5-6 level. 3. There is multilevel foraminal stenosis as described above. 4. There is multilevel facet arthropathy. Nonacute chronic appearing wedge compression fracture of T4 noted. Also noted is a benign intraosseo us hemangioma in the anterior aspect of T2 vertebral body. DATA REPOSITORY:
== END ==
PROVIDERS: PCP Family Medicine; Visit Provider Psychiatry & Neurology Neurology
DX: M48.02 Spinal stenosis, cervical region (principal)
CPT/HCPCS: 72141

== ENCOUNTER → 2024-01-18 14:44 | Outpatient (BNVA) | payer MEDICARE, BC, SELFPAY | PROVIDERS: PCP Family Medicine; Referring Provider Family Medicine; Visit Provider Psychiatry & Neurology Neurology | DX: M48.02 Spinal stenosis, cervical region (principal); G95.9 Disease of spinal cord, unspecified; I16.1 Hypertensive emergency; R29.2 Abnormal reflex; R26.89 Other abnormalities of gait and mobility; M26.12 Other jaw asymmetry; R25.2 Cramp and spasm | CPT/HCPCS: 99214 ==

== ENCOUNTER → 2024-04-18 10:41 | Outpatient (BNVA) | payer MEDICARE, BC, SELFPAY | PROVIDERS: PCP Family Medicine; Referring Provider Family Medicine; Visit Provider Psychiatry & Neurology Neurology | DX: I16.1 Hypertensive emergency (principal); R29.2 Abnormal reflex; R26.89 Other abnormalities of gait and mobility; M26.12 Other jaw asymmetry; R25.2 Cramp and spasm; R25.1 Tremor, unspecified; M48.02 Spinal stenosis, cervical region; G95.9 Disease of spinal cord, unspecified | CPT/HCPCS: 99215 ==

== ENCOUNTER 2024-05-19 12:44 | Outpatient (REF) | payer MEDICARE, BC, SELFPAY ==
[2024-05-19 15:24] LABS: HCT 44.4 % (36.0-46.0); HGB 14.2 g/dL (11.2-15.7); MCH 30.8 pg (27.0-33.0); MCV 96 fL (80-95); MPV 11.2 fL (8.0-11.0); Platelet Count 173 10^3/uL (130-400); RBC 4.61 10^6/uL (3.93-5.22); RDW-SD 46.3 fL
[2024-05-19 15:40] LABS: ALT 23 U/L (14-59); AST 27 U/L (15-37); Albumin 3.9 g/dL (3.4-5.0); Alkaline Phosphatase 85 U/L (46-116); Anion Gap 6.2 mmol/L (3-11); BUN 16 mg/dL (7-18); Bilirubin, Total 0.42 mg/dL (0.2-1.0); CO2 30.8 mmol/L (21.0-32.0); CREATININE 0.7 mg/dL (0.55-1.02); Calcium 9.3 mg/dL (8.5-10.1); Calculated LDL 135 mg/dL (<100); Chloride 105 mmol/L (98-107); Cholesterol 238 mg/dL (<200); Estimated GFR 89.02 (mL/min/1.73m2); Glucose 80 mg/dL (74-106); HDL Cholesterol 82 mg/dL (40-60); Potassium 4.2 mmol/L (3.5-5.1); Sodium 142 mmol/L (136-145); Total Protein 6.4 g/dL (6.4-8.2); Triglyceride 109 mg/dL (<150)
== END 2024-05-19 12:45 | disposition home or self-care (01) ==
LOC: NCHCN 12:44
PROVIDERS: PCP Family Medicine; Visit Provider Family Medicine
DX: E78.5 Hyperlipidemia, unspecified (principal); K21.9 Gastro-esophageal reflux disease without esophagitis; I48.91 Unspecified atrial fibrillation; R26.89 Other abnormalities of gait and mobility; R25.1 Tremor, unspecified
CPT/HCPCS: 80053; 80061; 85027

== ENCOUNTER 2024-11-15 11:28 | Outpatient (REF) | payer MEDICARE, BC, SELFPAY ==
[2024-11-15 15:45] LABS: Calculated LDL 93 mg/dL (<100); Cholesterol 201 mg/dL (<200); HDL Cholesterol 94 mg/dL (40-60); Triglyceride 74 mg/dL (<150)
== END 2024-11-15 11:29 | disposition home or self-care (01) ==
LOC: NCHCN 11:28
PROVIDERS: PCP Family Medicine; Visit Provider Family Medicine
DX: E78.5 Hyperlipidemia, unspecified (principal)
CPT/HCPCS: 80061

== ENCOUNTER 2024-12-13 01:52 | Outpatient (CLI) | payer MEDICARE, BC, SELFPAY ==
--- NOTE | 2024-12-13 | DI.US_ITS ---
Exam(s) MG MAMMO DIAGNOSTIC UNI US BREAST RT LIMITED EXAM: MG MAMMO DIAGNOSTIC UNI and U/S breast RT limited CLINICAL HISTORY: LUMP IN UPPER INNER QUADRANT RT BREAST, N63.12. TECHNIQUE: Craniocaudal and mediolateral oblique Full Field Digital Mammography views with Computer Aided Diagnosis followed by Tomosynthesis and right breast ultrasound. COMPARISON: Comparison is made with prior examinations. FINDINGS: Mammography/Tomosynthesis: Masses/Architectural Distortion: None seen. Microcalcifictions: No suspicious pleomorphic-type are seen. Skin Thickening/Nipple Retraction: None. Limited right breast US: Echotexture: Normal appearance of the glandular tissue. Shadowing: No suspicious foci. Cyst: None. Solid lesions: None seen. Ductal dilation: None. IMPRESSION: 1. No evidence of malignancy is noted. 2. Unless there is more urgent need, follow-up screening mammography is recommended, as per [place] [employer] guidelines. 3. The findings were discussed with the patient on the date of the examination. BI-RADS Category 1 - Negative Breast Density - Category C - Heterogeneously dense Breast density Category C or D implies that the patient has dense breast tissue. Dense breast tissue can make it harder to find cancer on a mammogram. Dense breast tissue is also associated with an incr eased risk of breast cancer. This information about the result of the mammogram report was provided to the patient to raise their awareness. Use this report when you speak with the patient about their risks for breast cancer, which includes their family history. At that time, you may recommend additional screening tests (Ultrasoun d or MRI) as these tests may add significant information. A negative radiographic report should not delay biopsy if a dominant or clinically suspicious mass is present. Up to ten percent of cancers are not identified on mammography. A negative report may reinforce clinical impression. Adenosis and dense breasts may obscure an underlying neoplasm. False positive reports average 6 to 10%. Patient will receive a letter notifying them of these results.
== END 2024-12-13 02:12 ==
LOC: DI 01:52
PROVIDERS: PCP Family Medicine; Visit Provider Family Medicine
DX: Z12.31 Encounter for screening mammogram for malignant neoplasm of breast (principal); N63.12 Unspecified lump in the right breast, upper inner quadrant
CPT/HCPCS: 76642; 77061; 77065; G0279

== ENCOUNTER → 2025-06-28 13:50 | Outpatient (BNVA) | payer MEDICARE, BC, SELFPAY | PROVIDERS: PCP Family Medicine; Referring Provider Family Medicine; Visit Provider Podiatrist | DX: L84 Corns and callosities (principal); M79.671 Pain in right foot; M79.672 Pain in left foot; G60.9 Hereditary and idiopathic neuropathy, unspecified; M20.41 Other hammer toe(s) (acquired), right foot; M20.42 Other hammer toe(s) (acquired), left foot; M21.611 Bunion of right foot; M21.612 Bunion of left foot; R26.89 Other abnormalities of gait and mobility; R20.2 Paresthesia of skin; L85.8 Other specified epidermal thickening; R23.8 Other skin changes; R23.4 Changes in skin texture | CPT/HCPCS: 97597; 11057 ==

== ENCOUNTER 2025-06-28 15:40 | Outpatient (CLI) | payer MEDICARE, BC, SELFPAY ==
--- NOTE | 2025-06-28 15:15 | DI.RAD_ITS ---
Exam(s) XR FOOT LT COMPLETE EXAM: XR FOOT LT COMPLETE CLINICAL HISTORY: foot deformity/pain, baseline, BILAT FOOT DEFORMITY M21.961 M21.962 M79.671. TECHNIQUE: 2D digital imaging was performed. Three views. COMPARISON: CR XR FOOT RT COMPLETE from 06/28/2025 FINDINGS: BONES: No acute fracture is present. No bony destructive lesion is seen. JOINTS: There is 1st metatarsal varus and severe hallux valgus. The 1st toe appears to overlie the 2nd toe and shows dorsiflexion at the 1st MTP joint. There is apparent dislocation dorsally at the 2nd MTP joint there is severe hammertoe deformity 2nd toe. Hammertoe deformity also noted of the 3rd toe. There is also some proximal and medial displacement of the 1st metatarsal sesamoid bones. The plantar arch is maintained. SOFT TISSUE: Normal. IMPRESSION: Severe hallux valgus. Dorsal dislocation of the 2nd MTP joint. Severe hammertoe deformities. DATA REPOSITORY: RADIATION DOSE DELIVERED:
--- NOTE | 2025-06-28 15:15 | DI.RAD_ITS ---
Exam(s) XR FOOT RT COMPLETE EXAM: XR FOOT RT COMPLETE CLINICAL HISTORY: foot deformity/pain, baseline, BILAT FOOT DEFORMITY M21.961 M21.962 M79.671. TECHNIQUE: 2D digital imaging was performed. Three views. COMPARISON: CR XR FOOT LT COMPLETE from 06/28/2025 FINDINGS: BONES: No acute fracture is present. No bony destructive lesion is seen. JOINTS: There is 1st metatarsal varus and severe hallux valgus. The proximal phalanx appears articulate with the lateral aspect of the 1st metatarsal head. There is dorsiflexion at the 1st MTP joint. The 1st toe overlaps with the 2nd toe. There is a hammertoe deformity of the 2nd toe. Milder hammertoe deformities of the seen the 3rd and 4th toes. SOFT TISSUE: Normal. IMPRESSION: Severe hallux valgus. Hammertoe deformities. DATA REPOSITORY: RADIATION DOSE DELIVERED:
== END 2025-06-28 16:00 ==
PROVIDERS: PCP Family Medicine; Visit Provider Podiatrist
DX: M79.671 Pain in right foot (principal); M79.672 Pain in left foot; M20.12 Hallux valgus (acquired), left foot; M20.11 Hallux valgus (acquired), right foot
CPT/HCPCS: 73630

== ENCOUNTER 2025-08-20 03:40 | Outpatient (CLI) | payer MEDICARE, BC, SELFPAY ==
--- NOTE | 2025-08-20 | DI.RAD_ITS ---
Exam(s) XR HAND RT COMPLETE EXAM: XR HAND RT COMPLETE CLINICAL HISTORY: MASS RT HAND, R22.31. TECHNIQUE: 2D digital imaging was performed of the right hand. Three images were obtained. AP, lateral and oblique views were obtained. COMPARISON: CR XR WRIST RT LIMITED from 10/07/2022 CR XR HAND RT COMPLETE from 10/07/2022 FINDINGS: BONES: No acute fracture is present. No bony destructive lesion is seen. JOINTS: No dislocation present. There are degenerative changes seen in the hand and wrist characterized by joint space narrowing and osteophytes. The findings are most marked at the 1st CMC joint and the interphalangeal joint of the thumb. SOFT TISSUE: There is a question of mild swelling at the ulnar aspect of the wrist adjacent to the hamate in the base of the 5th metacarpal. No soft tissue calcifications or bony abnormality is identified. No soft tissue gas is seen. IMPRESSION: 1. Moderate degenerative changes seen in the hand and wrist. 2. No osseous abnormality, subcutaneous calcifications or gas are seen in the ulnar aspect of the wrist. If there is concern for soft tissue mass, an MRI should be considered for further evaluation. DATA REPOSITORY: RADIATION DOSE DELIVERED:
== END 2025-08-20 04:00 ==
LOC: DI 03:40
PROVIDERS: PCP Family Medicine; Visit Provider Family Medicine
DX: M19.041 Primary osteoarthritis, right hand (principal)
CPT/HCPCS: 73130

== ENCOUNTER → 2025-09-27 09:53 | Outpatient (BNVA) | payer MEDICARE, BC, SELFPAY | PROVIDERS: PCP Family Medicine; Referring Provider Family Medicine; Visit Provider Podiatrist | DX: L84 Corns and callosities (principal); I73.00 Raynaud's syndrome without gangrene; G60.9 Hereditary and idiopathic neuropathy, unspecified; R26.89 Other abnormalities of gait and mobility; M79.671 Pain in right foot; M79.672 Pain in left foot; M20.41 Other hammer toe(s) (acquired), right foot; M20.42 Other hammer toe(s) (acquired), left foot; M21.611 Bunion of right foot; M21.612 Bunion of left foot; R23.8 Other skin changes; L85.8 Other specified epidermal thickening; R26.2 Difficulty in walking, not elsewhere classified | CPT/HCPCS: 99214; 11057 ==